=== PATIENT | female | born 1935 | race Caucasian/White ===

== ENCOUNTER 2016-08-30 10:05 | Emergency (ER) | payer MEDICARE, OTHER ==
[2016-08-30] MEDS ORDERED: DEXAMETHASONE 10 MG/ML VIAL PO STA (12:07)
[2016-08-30] MEDS ORDERED: hydrOXYzine PAMOATE 25 MG CAPSULE PO STA (12:07)
[2016-08-30] MEDS ORDERED: hydrOXYzine PAMOATE 25 MG CAPSULE ONE (12:11)
[2016-08-30] MEDS ORDERED: DEXAMETHASONE 10 MG/ML VIAL ONE (12:11)
--- NOTE | 2016-08-30 12:13 | ED Physician Documentation ---
PD HPI MAJOR TRAUMA - Stated complaint Stated Complaint: FALL,ALLERGIC REACTION TO RX - Chief complaint Chief Complaint: Wound - History obtained from History obtained from: Patient - History of Present Illness Mechanism of injury: Other (81-year-old woman who has 2 complaints. She started using Efudex approximately 6 weeks ago for precancerous lesions on the legs. During the first 2 weeks she had focal itching on the legs, and there was a 2 week break. She started it again about 10 days ago and stopped it about a week later because she developed diffuse itching and redness, not just where she was applying the Efudex. About 4 days ago she fell, getting out of the car, laid flat on concrete. She hit the back of her head and back. She has no headache but complains of diffuse spinal pain after the fall. 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 - Present Medications Home Medications: Ambulatory Orders Medication Instructions Recorded Confirmed Aspirin 81 mg PO DAILY 08/30/16 08/30/16 Hydroxyzine Pamoate 1 - 2 tab PO Q6H PRN #20 capsule 08/30/16 Lorazepam [Ativan] 1 mg PO TID PRN #15 tablet 08/30/16 amLODIPine [Norvasc] 5 mg PO DAILY 08/30/16 08/30/16 predniSONE [Deltasone] 20 mg PO [id number] #21 tab 08/30/16 - Allergies Allergies/Adverse Reactions: Allergies Allergy/AdvReac Type Severity Reaction Status Date / Time No Known Drug Allergies Allergy Verified 08/30/16 10:16 - Social History Does the pt smoke?: No Smoking Status: Never smoker Does the pt drink ETOH?: No Does the pt have substance abuse?: No - Immunizations Immunizations are current?: Yes PD ED PE NORMAL - Vitals Vital signs reviewed: Yes - General General: Alert and oriented X 3, No acute distress - HEENT HEENT: PERRL, EOMI - Neck Neck: Supple, no meningeal sign, No bony TTP - Back Back: Other (She does have some spinal tenderness, especially the upper thoracic spine, none in the cervical spine.) - Derm Derm: Other (On the legs there are areas of slight skin breakdown with excoriations and some small bleeding lesions and she has diffuse redness throughout but without pharyngeal angioedema or wheezing.) - Neuro Neuro: Alert and oriented X 3, Normal speech - Psych Psych: Normal mood, Normal affect Results - Vitals Vitals: Vital Signs - 24 hr 08/30/16 08/30/16 08/30/16 10:11 12:02 13:46 Temperature 36.5 C Heart Rate 81 71 84 Respiratory 14 18 12 Rate Blood Pressure 151/80 H 142/77 H 153/93 H O2 Saturation 99 99 96 Oxygen O2 Source Room air - Rads (name of study) T/L/S Xrs Radiology: EMP read contemporaneously (Old L1 burst fracture without acute fractures) PD MEDICAL DECISION MAKING - ED course ED course: She has already stopped the Efudex and We will trial some steroids and hydroxyzine for the itching. Departure - Departure Disposition: 01 Home, Self Care Clinical Impression: Skin rash Back strain Qualifiers: Encounter type: initial encounter Qualified Code(s): S39.012A - Strain of muscle, fascia and tendon of lower back, initial encounter Condition: Good Record reviewed to determine appropriate education?: Yes Instructions: ED Sprain Strain Lumbar Follow-Up: [facility] [Provider Group] Prescriptions: Lorazepam [Ativan] 1 mg PO TID PRN #15 tablet PRN Reason: Anxiety predniSONE [Deltasone] 20 mg PO [id number] #21 tab Hydroxyzine Pamoate 1 - 2 tab PO Q6H PRN #20 capsule PRN Reason: Itching Comments: Do not take hydroxyzine within 1 hour of the lorazepam/Ativan. Your blood pressure was elevated today on check into the emergency department. This does not mean that you have hypertension, it is a common phenomenon to come to the emergency department and have elevated blood pressure. I recommend that she see her primary care physician within the week to have it rechecked when you are feeling better. Forms: Activity restrictions Discharge Date/Time: 08/30/16 13:52
--- NOTE | 2016-08-30 13:23 | XRAY Preliminary Report ---
Exam: XR Thoracic Spine 2 View Impression: No evidence of an acute fracture or dislocation. [facility] SITE ID: [id number]
--- NOTE | 2016-08-30 13:26 | XRAY Report ---
EXAM: THORACIC SPINE RADIOGRAPHY EXAM DATE: 08/30/2016 12:51 PM. CLINICAL HISTORY: Back pain, fall. COMPARISON: None. TECHNIQUE: 2 views. FINDINGS: There is a normal curvature of the thoracic spine. There is no evidence of an acute fracture or dislo cation. Degenerative changes of the visualized lumbar spine are noted with scoliosis convex to the ri ght. Impression: No evidence of an acute fracture or dislocation. [facility] Referring Provider Line: [phone] SITE ID: [id number]
--- NOTE | 2016-08-30 13:29 | XRAY Preliminary Report ---
Exam: XR Lumbar Spine 2 View Impression: L1 burst fracture with a similar appearance to the previous study. Severe degenerative changes of the lumbar spine with scoliosis convex to the right. Atherosclerosis of the aorta and iliac arteries. [facility] SITE ID: [id number]
--- NOTE | 2016-08-30 13:32 | XRAY Report ---
EXAM: LUMBOSACRAL SPINE RADIOGRAPHY EXAM DATE: 08/30/2016 12:52 PM. CLINICAL HISTORY: Back pain, fall. COMPARISONS: None. TECHNIQUE: 3 views. FINDINGS: There is a severe burst fracture involving the L1 vertebral body. The appearance is similar to the pr evious study. There are extensive degenerative changes of the lumbar spine with scoliosis convex to t he right. The sacroiliac joints are preserved. Mild degenerative changes of both hips are noted. Atherosclerosis of the aorta is noted. Impression: L1 burst fracture with a similar appearance to the previous study. Severe degenerative changes of the lumbar spine with scoliosis convex to the right. Atherosclerosis of the aorta and iliac arteries. [facility] Referring Provider Line: [phone] SITE ID: [id number]
--- NOTE | 2016-08-30 13:32 | XRAY Preliminary Report ---
Exam: XR Sacrum/Coccyx Impression: No evidence of a displaced sacral or coccygeal fracture. [facility] SITE ID: [id number]
--- NOTE | 2016-08-30 13:35 | XRAY Report ---
EXAM: SACRUM AND COCCYX RADIOGRAPHY EXAM DATE: 08/30/2016 12:53 PM. HISTORY: Back pain, fall. COMPARISONS: None. TECHNIQUE: 3 views. FINDINGS: There are degenerative changes of the lumbar spine. Mild degenerative changes of both hips is noted. No displaced sacral or coccyx fracture is noted. There is atherosclerosis of the aorta and iliac carlos mohsen. Impression: No evidence of a displaced sacral or coccygeal fracture. [facility] Referring Provider Line: [phone] SITE ID: [id number]
[2016-08-30 13:46] VITALS: BP 153/93
== END 2016-08-30 13:52 | disposition home or self-care (01) ==
LOC: ED 10:05
DX: R21 Rash and other nonspecific skin eruption (principal); S39.012A Strain of muscle, fascia and tendon of lower back, initial encounter; W17.89XA Other fall from one level to another, initial encounter; I10 Essential (primary) hypertension; Z86.73 Personal history of transient ischemic attack (TIA), and cerebral infarction without residual deficits; Z85.828 Personal history of other malignant neoplasm of skin; Z79.82 Long term (current) use of aspirin
CPT/HCPCS: 72070; 72100; 72220; 99283; A9270

== ENCOUNTER 2016-11-10 10:38 | Outpatient (CLI) | payer MEDICARE, OTHER ==
--- NOTE | 2016-11-10 15:22 | DEXA Report ---
DEXA SCAN: 11/10/2016 CLINICAL INDICATION: Postmenopausal. TECHNIQUE: Dual energy x-ray absorptiometry (DXA) was performed on a [employer]lick[employer] system. Regions measured are the AP spine, femoral neck, and, if needed, forearm. COMPARISON: None. In accordance with the International Society for Clinical Densitometry (ISCD) guidelines, data from previous exams may be reanalyzed using current recommendations and techniques. This is done to allow a more accurate basis for comparison with the current study. FINDINGS: The data for the lumbar spine is as follows: REGION BMD (g/cm/cm) T-SCORE Z-SCORE L1 1.200 0.6 2.5 L2 1.104 -0.8 1.2 L3 1.246 0.4 2.3 L4 1.374 1.4 3.4 TOTAL 1.233 0.4 2.4 NOTE: All evaluable vertebrae are used for classification. The data for the hip is as follows: REGION BMD (g/cm/cm) T-SCORE Z-SCORE Neck 0.704 -2.4 -0.1 TOTAL 0.709 -2.4 -0.2 NOTE: The femoral neck or total proximal femur, whichever is lowest, is used for classification. IMPRESSION: THE WHO CLASSIFICATION BASED ON THE INTERNATIONAL REFERENCE STANDARD IS OSTEOPENIA. THE FRACTURE RISK IS INCREASED. RECOMMENDATION: Patients with diagnosis of osteoporosis or osteopenia should have regular bone mineral density assessment. For those eligible for Medicare, routine testing is allowed once every 2 years. Testing frequency can be increased for patients who have rapidly progressing disease or for those who are receiving medical therapy to restore bone mass. COMMENT: World Health Organization (WHO) definitions for osteoporosis and osteopenia: NORMAL BMD: T-score at -1.0 or higher, fracture risk is low. OSTEOPENIA BMD: T-score between -1.0 and -2.5, fracture risk is increased. OSTEOPOROSIS BMD: T-score at -2.5 or lower, fracture risk high. National Osteoporosis Foundation recommends: 1. Obtain adequate dietary calcium (at least 1200 mg per day) and vitamin D (400 -800 international units per day). 2. Participate, as appropriate, in regular weightbearing and muscle- strengthening exercise. 3. Avoid tobacco use and reduce alcohol and caffeine intake. 4. For more detailed information see the website at www.NOF.org. MTDD
== END 2016-11-10 10:39 | disposition home or self-care (01) ==
LOC: DI 10:38
PROVIDERS: ATTEND Internal Medicine
DX: N95.8 Other specified menopausal and perimenopausal disorders (principal)
CPT/HCPCS: 77080

== ENCOUNTER 2018-12-26 12:45 | Emergency (ER) | payer MEDICARE, OTHER ==
--- NOTE | 2018-12-26 14:12 | XRAY Report ---
Reason: cough Procedure Date: 12/26/2018 Accession Number: [id number] / [id number] Procedure: XR - Chest 2 View X-Ray CPT Code: 69660 FULL RESULT: EXAM: CHEST RADIOGRAPHY EXAM DATE: 12/26/2018 01:48 PM. CLINICAL HISTORY: Cough. COMPARISON: THORACIC SPINE 2 VIEW 08/30/2016 12:31 PM. TECHNIQUE: 2 views. FINDINGS: Lungs/Pleura: Interstitial prominence is noted in both lungs. Bronchial wall thickening is identified. No consolidation, effusions or pneumothorax. Mediastinum: Stable. Atheromatous disease is noted in the thoracic aorta. Other: Scoliosis of the thoracic and lumbar spine is present. On the lateral view, patient has lower thoracic spine kyphosis. IMPRESSION: 1. Nonspecific bronchial wall thickening could represent bronchitis or reactive airways disease. 2. No consolidation, effusions or pneumothorax. [facility]
--- NOTE | 2018-12-26 14:33 | ED Physician Documentation ---
History of Present Illness - Stated complaint Stated Complaint: COUGH, SOA, FEVER - Chief complaint Chief Complaint: Resp - Additonal information Additional information: This is an 83-year-old female who presents with cough, runny nose, sore throat, for just over 1 week. 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 She denies shortness of breath, blood in her sputum, or much production of sputum in general, but given the persistence of her symptoms she wanted to be checked out for pneumonia. No leg swelling. 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 - Present Medications Home Medications: Ambulatory Orders Medication Instructions Recorded Confirmed Aspirin 81 mg PO DAILY 08/30/16 08/30/16 Hydroxyzine Pamoate 1 - 2 tab PO Q6H PRN #20 capsule 08/30/16 Lorazepam [Ativan] 1 mg PO TID PRN #15 tablet 08/30/16 amLODIPine [Norvasc] 5 mg PO DAILY 08/30/16 08/30/16 predniSONE [Deltasone] 20 mg PO [id number] #21 tab 08/30/16 Amox/Clav 875/125 [Augmentin] 1 each PO Q12H #14 tablet 12/26/18 Benzonatate [Tessalon Perle] 100 - 200 mg PO TID PRN #30 capsule 12/26/18 - Allergies Allergies/Adverse Reactions: Allergies Allergy/AdvReac Type Severity Reaction Status Date / Time No Known Drug Allergies Allergy Verified 12/26/18 13:16 - Social History Does the pt smoke?: No Smoking Status: Never smoker Does the pt drink ETOH?: Yes Does the pt have substance abuse?: No - Immunizations Immunizations are current?: Yes - POLST Patient has POLST: No PD ED PE NORMAL - Vitals Vital signs reviewed: Yes - General General: Alert and oriented X 3, No acute distress - HEENT HEENT: PERRL, Other (Bilateral serous effusions behind TMs, injection and possible purulent layer behind R TM.) - Neck Neck: Supple, no meningeal sign - Cardiac Cardiac: RRR, No murmur - Respiratory Respiratory: No respiratory distress, Clear bilaterally - Abdomen Abdomen: Soft, Non tender, Non distended - Derm Derm: Warm and dry - Extremities Extremities: No deformity - Neuro Neuro: Alert and oriented X 3 - Psych Psych: Normal mood, Normal affect Results - Vitals Vitals: Oxygen O2 Source Room air PD MEDICAL DECISION MAKING - ED course ED course: Patient presents with symptoms consistent with URI, she has no chest pain or shortness of breath, and she is very well appearing on exam. I discussed that this is likely a viral URI and the azithromycin she took didn't work because it does not treat viral illnessess. CXR shows no signs of pneumonia. She does have what looks like the beginnings of a suppurative effusion on the R TM, and given she has some pain on that side I discussed that if her symptoms are not improving or worsening in 24 hours she may start abx treatment for this, which was prescribed. PCP follow up, supporitve care, and return precautions discussed and patient was discharged in the care of her . Departure - Departure Disposition: 01 Home, Self Care Clinical Impression: Viral URI with cough Otitis media Qualifiers: Otitis media type: serous Chronicity: acute Laterality: right Recurrence: not specified as recurrent Qualified Code(s): H65.01 - Acute serous otitis media, right ear Condition: Good Instructions: ED Otitis Media Serous Adult, ED Viral Syndrome Follow-Up: BRYANNA TAPIA MD [Primary Care Provider] - Within 1 week (If having continued symptoms) Prescriptions: Amox/Clav 875/125 [Augmentin] 1 each PO Q12H #14 tablet Benzonatate [Tessalon Perle] 100 - 200 mg PO TID PRN #30 capsule PRN Reason: Cough Comments: Your chest x-ray today shows some inflammation of your airways but no pneumonia. You do have some fluid and inflammation behind your eardrum, this may be the beginnings of a bacterial ear infection. If your symptoms are improving and you are not having further ear pain or fever, you can treat this with Tylenol, ibuprofen, rest, and fluids. If you are developing increasing ear pain, fever, or sinus pain, please start the antibiotic which has been prescribed to you. If your symptoms are not improving, please also follow-up with your primary care provider. If you are developing worsening, such as shortness of breath, or any other concerning symptoms, please return to the emergency department Discharge Date/Time: 12/26/18 15:21
[2018-12-26 15:19] VITALS: BP 141/79
== END 2018-12-26 15:21 | disposition home or self-care (01) ==
LOC: ED 12:45
DX: J06.9 Acute upper respiratory infection, unspecified (principal); H65.01 Acute serous otitis media, right ear; I10 Essential (primary) hypertension; Z79.82 Long term (current) use of aspirin
CPT/HCPCS: 71046; 99283

== ENCOUNTER 2020-12-10 11:35 | Outpatient (CLI) | payer MEDICARE, OTHER ==
--- NOTE | 2020-12-10 14:51 | XRAY Report ---
PROCEDURE: Abdomen 2 View X-Ray INDICATIONS: UNSPECIFIED ABDOMINAL PAIN TECHNIQUE: 2 views of the abdomen were acquired. COMPARISON: None available. FINDINGS: Surgical changes and devices: A spinal device is noted. Bowel: No pneumoperitoneum. The bowel gas pattern is normal. Soft tissues: No masses; visualized solid organ contours appear normal in size. No suspicious abdom inal calcifications. Bones: No suspicious bony abnormalities. Dextrocurvature of the lumbar spine. IMPRESSION: Nonobstructive bowel gas pattern. Reviewed by: Shaun Aguilera MD on 12/10/2020 2:49 PM PDT Approved by: Shaun Aguilera MD on 12/10/2020 2:49 PM PDT Station ID: [id number]
== END 2020-12-10 11:36 ==
LOC: DI.S 11:35
PROVIDERS: ATTEND Physician Assistant Medical
DX: R10.9 Unspecified abdominal pain (principal)

== ENCOUNTER 2021-07-30 08:00 | Outpatient (CLI) | payer MEDICARE, OTHER | END 2021-07-30 23:59 | disposition home or self-care (01) | LOC: LAB.S 08:00 | PROVIDERS: ATTEND Registered Nurse | DX: N30.01 Acute cystitis with hematuria (principal) | CPT/HCPCS: 87077; 87086; 87181 ==

== ENCOUNTER 2021-08-08 17:50 | Outpatient (CLI) | payer MEDICARE, OTHER ==
[2021-08-08 16:30] LABS: BILIRUBIN,URINE NEGATIVE (NEGATIVE); GLUCOSE, URINE (UA) NEGATIVE (NEGATIVE); KETONES,URINE (UA) NEGATIVE (NEGATIVE); LEUKOCYTE ESTERASE, URINE MODERATE (NEGATIVE); NITRITE,URINE NEGATIVE (NEGATIVE); OCCULT BLOOD,URINE NEGATIVE (NEGATIVE); PROTEIN,URINE NEGATIVE (NEGATIVE); UROBILINOGEN,URINE 0.2 (NORMAL) E.U./dL (NORMAL)
[2021-08-08 16:32] LABS: CLARITY,URINE CLEAR (CLEAR)
[2021-08-08 16:48] LABS: BACTERIA,URINE Few /HPF (None Seen); RBC,URINE 0-5 /HPF (0-5); SQUAMOUS EPITHELIAL CELL,UR MOD Squamous (<= Few)
[2021-08-08 21:59] LABS: BACTERIAL VAGINOSIS DNA NEGATIVE (NEGATIVE); CANDIDA GLABRATA DNA NEGATIVE (NEGATIVE); CANDIDA GROUP DNA POSITIVE (NEGATIVE); CANDIDA KRUSEI DNA NEGATIVE (NEGATIVE); TRICHOMONAS VAGINALIS DNA NEGATIVE (NEGATIVE)
== END 2021-08-08 17:51 | disposition home or self-care (01) ==
LOC: LAB.S 17:50
PROVIDERS: ATTEND Physician Assistant Medical
DX: R30.0 Dysuria (principal); N76.0 Acute vaginitis
CPT/HCPCS: 81001; 81514; 87086

== ENCOUNTER 2021-11-26 16:10 | Outpatient (CLI) | payer MEDICARE, OTHER ==
--- NOTE | 2021-11-26 13:24 | XRAY Report ---
PROCEDURE: Lumbar Spine 2 View INDICATIONS: LOW BACK PAIN TECHNIQUE: 3 views of the lumbar spine were acquired. COMPARISON: Abdominal radiograph dated 12/10/2020. FINDINGS: Bones: 5 [id number] vertebrae are present. Moderate dextroscoliosis of lumbar spine is again se en centered at L2 level. Degenerative endplate changes throughout lumbar spine is again noted. No acu te vertebral body compression fractures. No suspicious bony lesions. Soft tissues: Overlying bowel gas pattern is normal. No suspicious soft tissue calcifications. Cor d stimulator is seen projecting over left gluteal region with leads seen in the level of mid to lower thoracic spine. IMPRESSION: 1. Diffuse osteopenia. Degenerative disc disease throughout lumbar spine. No acute compression fractu re or significant listhesis. Moderate dextroscoliosis unchanged from previous study in 2020. Reviewed by: John Collier MD on 11/26/2021 1:23 PM PDT Approved by: John Collier MD on 11/26/2021 1:23 PM PDT Station ID: [id number]
--- NOTE | 2021-11-27 10:21 | XRAY Report ---
PROCEDURE: Thoracic Spine 3 View INDICATIONS: THORACIC BACK PAIN TECHNIQUE: 3 views of the thoracic spine were acquired. COMPARISON: Thoracic spine radiographs 08/30/2016. Chest radiograph 12/26/2018 FINDINGS: Bones: Moderate compression deformity of the T11 vertebral body has mildly progressed when compared t o the radiographs from 08/30/2016, and appear similar when compared to the chest radiograph from 2018. No suspicious bony lesions. 12 pairs of ribs are noted, and appear intact where visualized. M oderate dextroconvex curvature of the upper lumbar spine. Generalized osteopenia. Soft tissues: No paravertebral stripe thickening. Spinal stimulator leads are seen projecting over the mid to lower thoracic spine appear IMPRESSION: 1.Chronic moderate compression fracture of the T11 vertebral body. No definite acute fracture is seen . 2.Moderate dextro convex curvature of the upper lumbar spine. Multilevel spondylosis. Reviewed by: Shaun Higginbotham MD on 11/27/2021 10:20 AM PDT Approved by: Shaun Higginbotham MD on 11/27/2021 10:20 AM PDT Station ID: [id number]
== END 2021-11-26 16:11 | disposition home or self-care (01) ==
LOC: DI.S 16:10
PROVIDERS: ATTEND Physician Assistant Medical
DX: M48.54XA Collapsed vertebra, not elsewhere classified, thoracic region, initial encounter for fracture (principal); M85.88 Other specified disorders of bone density and structure, other site; M41.9 Scoliosis, unspecified; M47.816 Spondylosis without myelopathy or radiculopathy, lumbar region

== ENCOUNTER 2022-01-06 22:17 | Outpatient (CLI) | payer MEDICARE, OTHER | END 2022-01-06 22:18 | disposition critical access hospital (66) | LOC: EMS 22:17 | DX: S89.92XA Unspecified injury of left lower leg, initial encounter (principal); S40.212A Abrasion of left shoulder, initial encounter; W10.9XXA Fall (on) (from) unspecified stairs and steps, initial encounter; Y93.01 Activity, walking, marching and hiking; Y92.009 Unspecified place in unspecified non-institutional (private) residence as the place of occurrence of the external cause; Z96.652 Presence of left artificial knee joint | CPT/HCPCS: A0425; A0427 ==

== ENCOUNTER 2022-01-06 23:47 | Emergency (ER) | payer MEDICARE, OTHER ==
[2022-01-06] MEDS ORDERED: HYDROmorphone 1 MG/ML CARPUJECT IVP STA (23:51)
[2022-01-06] MEDS ORDERED: BACITRACIN ZINC OINT 1 PACKET TOP STA (23:55)
--- NOTE | 2022-01-06 23:56 | ED Physician Documentation ---
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 also with L shoulder and elbow pain and skin tears. 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 - Present Medications Home Medications: Ambulatory Orders Medication Instructions Recorded Confirmed Aspirin 81 mg PO DAILY 08/30/16 08/30/16 Hydroxyzine Pamoate 1 - 2 tab PO Q6H PRN #20 capsule 08/30/16 Lorazepam [Ativan] 1 mg PO TID PRN #15 tablet 08/30/16 amLODIPine [Norvasc] 5 mg PO DAILY 08/30/16 08/30/16 predniSONE [Deltasone] 20 mg PO [id number] #21 tab 08/30/16 Amox/Clav 875/125 [Augmentin] 1 each PO Q12H #14 tablet 12/26/18 Benzonatate [Tessalon Perle] 100 - 200 mg PO TID PRN #30 capsule 12/26/18 - Allergies Allergies/Adverse Reactions: Allergies Allergy/AdvReac Type Severity Reaction Status Date / Time No Known Drug Allergies Allergy Verified 01/06/22 23:55 - Social History Does the pt smoke?: No Smoking Status: Never smoker Does the pt drink ETOH?: Yes Does the pt have substance abuse?: No - Immunizations Immunizations are current?: Yes - POLST Patient has POLST: No PD ED PE NORMAL - Vitals Vital signs reviewed: Yes - General General: Alert and oriented X 3, No acute distress, Well developed/nourished - HEENT HEENT: Atraumatic, PERRL, EOMI, Moist mucous membranes, Pharynx benign - Neck Neck: No bony TTP - Cardiac Cardiac: RRR - Respiratory Respiratory: No respiratory distress, Clear bilaterally - Abdomen Abdomen: Non tender, Non distended - Back Back: No spinal TTP - Derm Derm: Normal color, Warm and dry, Other (avulsed skin to L elbow, L posterior shoulder) - Extremities Extremities: Other (L hip deformity. tender with rom. 2+ BL DP pulses. sensation and movement intact) - Neuro Neuro: No motor deficit, No sensory deficit - Psych Psych: Normal mood, Normal affect Results - Vitals Vitals: Vital Signs - 24 hr 01/06/22 01/07/22 01/07/22 23:55 01:58 03:00 Temperature 36.7 C Heart Rate 99 87 88 Respiratory 15 16 15 Rate Blood Pressure 157/75 H 149/72 H 100/62 O2 Saturation 96 99 100 If not protocol 2 : Oxygen Flow, liters/minute 01/07/22 05:00 Temperature Heart Rate 88 Respiratory 15 Rate Blood Pressure 94/60 O2 Saturation 99 If not protocol 2 : Oxygen Flow, liters/minute Oxygen O2 Source Nasal cannula - Labs Labs: Laboratory Tests 01/06/22 01/06/22 23:58 23:58 WBC 11.1 H RBC 3.87 L Hgb 13.3 Hct 41.0 MCV 105.9 H MCH 34.4 H MCHC 32.4 RDW 13.2 Plt Count 228 MPV 8.8 Neut # (Auto) 7.2 H Lymph # (Auto) 2.7 Jack # (Auto) 1.0 Eos # (Auto) 0.2 Baso # (Auto) 0.0 Absolute Nucleated RBC 0.00 Nucleated RBC % 0.0 Sodium 139 Potassium 3.5 Chloride 109 Carbon Dioxide 22 Anion Gap 8.0 BUN 21 H Creatinine 1.0 Estimated GFR (MDRD) 52 L Glucose 137 H Calcium 8.8 Total Bilirubin 0.5 AST 35 ALT 23 Alkaline Phosphatase 73 Total Protein 6.9 Albumin 4.0 Globulin 2.9 Albumin/Globulin Ratio 1.4 Lipase 31 PD MEDICAL DECISION MAKING - ED course ED course: 86yF p/w likely supracondylar L hip fracture. will obtain CT, treat for pain, reevaluate. L clavicle fx and L distal femoral fracture on imaging. 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 Discussed and they are aware that both facilities are full and boarding patients. Our [facility] is reaching out now to both facilities. We have held off on speaking with Dr. Villalobos for now since it is not their wish at this time to have surgery here. will endorse to incoming ED physician Dr. Bain for further management and care. prophylactic lovenox (40mg daily im) ordered. Note that per [facility] not accepting waitlist patients. [facility] reporting [address] Champagne stated he will make his own independent queries and get back to us this morning. Departure - Departure Clinical Impression: Clavicle fracture, Femur fracture Condition: Stable
--- OUTSIDE RECORDS SUMMARY | 2022-01-07 00:03 | EXTERNAL MEDICAL SUMMARY RPT | Continuity of Care Document ---
:1935 Author Organization [facility] Address [address] [place] [address] Phone Care Team Providers Name Role Phone Unavailable Unavailable Unavailable Daisha, Provider Unavailable Unavailable Allergies No information. Encounters No information. Functional Status No information. Immunizations No information. Medications date description facility [id number]+0000 estradiol [facility] [phone]+0000 triamcinolone acetonide [facility] [phone]+0000 fluconazole [facility] [id number]+0000 valacyclovir [facility] [id number]+0000 buprenorphine [facility] [phone]+0000 fluconazole [facility] [phone]+0000 triamcinolone acetonide [facility] [id number]+0000 estradiol [facility] [phone]+0000 estradiol [facility] [id number]+0000 valacyclovir [facility] [phone]+0000 valacyclovir [facility] [phone]+0000 fluconazole [facility] [phone]+0000 atorvastatin [facility] [phone]+0000 buprenorphine [facility] [phone]+0000 triamcinolone acetonide [facility] [phone]+0000 atorvastatin [facility] [phone]+0000 estradiol [facility] [phone]+0000 fluconazole [facility] [phone]+0000 atorvastatin [facility] [phone]+0000 fluconazole [facility] [phone]+0000 atorvastatin [facility] [phone]+0000 valacyclovir [facility] [phone]+0000 buprenorphine [facility] [phone]+0000 buprenorphine [facility] [phone]+0000 triamcinolone acetonide [facility] [place] garsia Problems No information. Procedures date description facility +0000 Visit Code Hold [facility] [phone]+0000 XR LUMBAR SPINE 2-[address] [facility] [place] garsia Results/Labs No information. Social History date description facility +0000 Never smoker [facility] [place] Vital Signs date measurement value units +0000 BMI BMI 23.47 kg/m2 +0000 BP_diastolic BP_diastolic 71 mmHg +0000 BP_systolic BP_systolic 128 mmHg +0000 heart_rate heart_rate 74 /min +0000 height_metric height_metric 160.02 cm [id number]+0000 height_standard height_standard 63 in +0000 respiration_rate respiration_rate 16 /min +0000 temperature_metric temperature_metric 36.11 C [id number]+0000 temperature_standard temperature_standard 9 7 F [id number]+0000 weight_metric weight_metric 59.87 kg +0000 weight_standard weight_standard 132 lb
[2022-01-07 00:09] LABS: BASOPHILS % (AUTO) 0.4 %; EOSINOPHILS # (AUTO) 0.2 10^3/uL (0.0-0.7); EOSINOPHILS % (AUTO) 1.6 %; HGB - HEMOGLOBIN 13.3 g/dL (12.0-16.0); LYMPHOCYTES # (AUTO) 2.7 10^3/uL (1.5-3.5); MEAN CORPUSCULAR HEMOGLOBIN 34.4 pg (27.0-31.0); MEAN CORPUSCULAR HGB CONC 32.4 g/dL (32.0-36.0); MEAN CORPUSCULAR VOLUME 105.9 fL (81.0-99.0); MEAN PLATELET VOLUME 8.8 fL (7.9-10.8); MONOCYTES % (AUTO) 8.6 %; NEUTROPHILS # (AUTO) 7.2 10^3/uL (1.5-6.6); NEUTROPHILS % (AUTO) 64.9 %; PLT - PLATELET COUNT 228 10^3/uL (130-450); RED BLOOD COUNT 3.87 10^6/uL (4.20-5.40); RED CELL DISTRIBUTION WIDTH 13.2 % (12.0-15.0); WHITE BLOOD COUNT 11.1 x10^3/uL (4.8-10.8)
[2022-01-07 00:22] LABS: ALBUMIN/GLOBULIN RATIO 1.4 (1.0-2.2); BILIRUBIN,TOTAL 0.5 mg/dL (0.2-1.0); CALCIUM 8.8 mg/dL (8.5-10.3); POTASSIUM 3.5 mmol/L (3.5-5.0); TOTAL PROTEIN 6.9 g/dL (6.7-8.2)
--- NOTE | 2022-01-07 01:03 | XRAY Report ---
PROCEDURE: Shoulder 2 View LT INDICATIONS: shoulder pain s/p fall TECHNIQUE: 2 views of the shoulder were acquired. COMPARISON: None. FINDINGS: Bones: There is a mildly comminuted fracture of the distal left clavicle. There is associated mild in ferior angulation and displacement distally. No suspicious bony lesions. Visualized ribs appear inta ct. Soft tissues: No suspicious soft tissue calcifications. IMPRESSION: 1. Comminuted fracture of the left clavicle. Reviewed by: Lyle Hammond MD on 01/07/2022 1:02 AM PST Approved by: Lyle Hammond MD on 01/07/2022 1:02 AM PST Station ID: [id number]
--- NOTE | 2022-01-07 01:05 | XRAY Report ---
PROCEDURE: Elbow 2 View LT INDICATIONS: elbow pain s/p fall TECHNIQUE: 2 views of the elbow were acquired. COMPARISON: None. FINDINGS: Bones: No displaced fractures or dislocations. No suspicious bony lesions. Soft tissues: No elbow joint effusion. No suspicious soft tissue calcifications. IMPRESSION: 1. No displaced fracture or dislocation. Reviewed by: Lyle Hammond MD on 01/07/2022 1:04 AM [facility] Approved by: Lyle Hammond MD on 01/07/2022 1:04 AM [facility] Station ID: [id number]
--- NOTE | 2022-01-07 02:18 | CT Report ---
PROCEDURE: LOWER EXTREMITY WO - LT INDICATIONS: femur fracture TECHNIQUE: Noncontrast 3-mm axial sections acquired from the distal tibial shaft to the talar dome, with coronal and sagittal reformats. For radiation dose reduction, the following was used: automated exposure c ontrol, adjustment of mA and/or kV according to patient size. COMPARISON: Right knee x-ray 01/06/2022. FINDINGS: Image quality: Excellent. Bones: There is a comminuted fracture of the distal femoral shaft with mild posterior displacement b y approximately one shaft width. No definite fracture. There is a comminuted fracture of the distal femoral shaft as described. A right total knee prosthesis is present. Soft tissues: There is also overlap of fracture fragments by the distal femur by approximately 4 cm. Impression: 1. Comminuted fracture of the distal femoral shaft. Reviewed by: Lyle Monroe MD on 01/07/2022 2:16 AM PST Approved by: Lyle Monroe MD on 01/07/2022 2:16 AM PST Station ID: [id number]
--- NOTE | 2022-01-07 02:33 | CT Report ---
PROCEDURE: PELVIS WO INDICATIONS: L hip fracture TECHNIQUE: Noncontrast 3 mm axial sections acquired through the bony pelvis, with coronal and sagittal reformatt ing. For radiation dose reduction, the following was used: automated exposure control, adjustment of mA and/or kV according to patient size. COMPARISON: None. FINDINGS: Image quality: Excellent. Bones: No displaced fractures or dislocations. There is a small curvilinear lucency within the left femoral neck likely representing an anatomic variant. No bony erosions or periosteal reaction. There is severe degenerative disc disease within the visualized lower lumbar spine at L5-S1. Soft tissues: No suspicious soft tissue calcifications. No left hip joint effusion. IMPRESSION: 1. No displaced fracture or dislocation in the left hip. Reviewed by: Lyle Hammond MD on 01/07/2022 2:32 AM PST Approved by: Lyle Hammond MD on 01/07/2022 2:32 AM PST Station ID: [id number]
--- NOTE | 2022-01-07 02:35 | XRAY Report ---
PROCEDURE: Knee 2 View LT INDICATIONS: knee pain s/p fall TECHNIQUE: Single lateral view of the left knee were acquired. COMPARISON: None. FINDINGS: Bones: There is a comminuted fracture of the distal femoral shaft with posterior and proximal sublux ation. Soft tissues: There is a probable articular joint effusion. No suspicious soft tissue calcification s. IMPRESSION: 1. Comminuted fracture of the left distal femoral shaft. Reviewed by: Lyle Hammond MD on 01/07/2022 2:34 AM PST Approved by: Lyle Hammond MD on 01/07/2022 2:34 AM PST Station ID: [id number]
[2022-01-07] MEDS ORDERED: HYDROmorphone 1 MG/ML CARPUJECT IVP STA ×3 (03:47→13:55)
[2022-01-07] MEDS ORDERED: ENOXAPARIN 60 MG/0.6 ML SYRINGE SUBQ SCH (06:00)
[2022-01-07] MEDS ORDERED: ENOXAPARIN 40 MG/0.4 ML SYRINGE SUBQ SCH (06:00)
[2022-01-07] MEDS ORDERED: diltiaZEM CD 180 MG CAPSULE PO ONE (06:52)
[2022-01-07] MEDS ORDERED: HYDROmorphone 1 MG/ML CARPUJECT IVP PRN (07:00)
--- NOTE | 2022-01-07 09:37 | ED Physician Documentation ---
ED Addendum - Addendum Addendum: Subjective: Patient signed out to me by Dr. Hay. Has a distal femur fracture, periprosthetic. Unclear if patient can be managed here by a family would prefer her to be elsewhere. Objective: Left arm in sling, Left leg in splint from EMS, distal pulses present, motor and sensation grossly intact Assessment: Closed left distal femur fracture, closed left clavicle fracture Plan: Transfer versus admit 917 - D/W Dr. Reynoso (Ortho, [facility]) - pt can be placed on waitlist. However would be 3 days until they would likely be able to accommodate patient. REcommends immbolizer. 1027 - D/W Dr. Villalobos (Ortho, [facility]) - Patient's injuries are complicated given prosthesis. Patient would be better served at a facility that does more of the surgery he says such as [facility]. He recommends transfer. 01/07/22 12:27 D/W Dr. Zarco ([facility], [facility]) - accepts pt for transfer. Departure - Departure Disposition: 02 Transfer Acute Care [facility] Clinical Impression: Clavicle fracture Qualifiers: Encounter type: initial encounter Clavicle location: lateral end Fracture type: closed Laterality: left Femur fracture Qualifiers: Encounter type: initial encounter Femur location: distal, unspecified portion Fracture type: closed Laterality: left Condition: Stable Discharge Date/Time: 01/07/22 14:09
[2022-01-07 14:08] VITALS: BP 113/57
== END 2022-01-07 14:09 | disposition short-term general hospital (02) ==
LOC: EDUNIT# → ED 23:47
DX: S72.492A Other fracture of lower end of left femur, initial encounter for closed fracture (principal); S42.032A Displaced fracture of lateral end of left clavicle, initial encounter for closed fracture; S50.312A Abrasion of left elbow, initial encounter; S40.212A Abrasion of left shoulder, initial encounter; M25.552 Pain in left hip; W10.9XXA Fall (on) (from) unspecified stairs and steps, initial encounter; I10 Essential (primary) hypertension; Z96.651 Presence of right artificial knee joint; Z79.82 Long term (current) use of aspirin
CPT/HCPCS: 36415; 72192; 73030; 73070; 73560; 73700; 80053; 83690; 85025; 87635; 96372; 96374; 96376; 99283; 99284; A9270; J1170; J1650